=== PATIENT | male | born 1985 | race American Indian/Alaskan Native ===

== ENCOUNTER 2021-06-20 22:58 | Emergency (ER) | payer OTHER ==
[2021-06-21] MEDS ORDERED: dexAMETHasone 20 MG/5 ML VIAL IM ONE (02:50)
[2021-06-21] MEDS ORDERED: KETOROLAC 30 MG/1 ML INJ IM ONE (02:50)
--- NOTE | 2021-06-21 03:54 | XRay Report ---
CHEST 2 VIEWS INDICATION / CLINICAL INFORMATION: COUGH. COMPARISON: None available. FINDINGS: SUPPORT DEVICES: None. HEART / MEDIASTINUM: No significant abnormality. LUNGS / PLEURA: No significant pulmonary or pleural abnormality. No pneumothorax. ADDITIONAL FINDINGS: No significant additional findings. IMPRESSION: 1. No acute findings. Signer Name: Pedro Benavides DO Signed: 06/21/2021 3:50 AM Workstation Name: [id number]
[2021-06-21 05:41] LABS: Bilirubin,Urine NEG (Negative); Blood,Urine NEG (Negative); Color,Urine Yellow (Yellow); Protein,Urine <15 mg/dL mg/dL (Negative); Urobilinogen,Urine < 2.0 mg/dL (<2.0); WBC,Urine < 1.0 /HPF (0.0-6.0)
[2021-06-21 06:56] VITALS: BP 165/93
--- NOTE | 2021-06-21 07:00 | Emergency Department Report ---
ED General Adult HPI - General Chief complaint: Pain General Stated complaint: BODYACHE/WEAKNESS Source: patient Mode of arrival: Ambulatory Limitations: No Limitations - History of Present Illness Initial comments: Patient is a 35-year-old -[place] male with a history of asthma and chronic right hip pain who presents to the ED with complaint of acute onset persistent low back pain that radiates to the right hip for the last 1 week, worse in the last 3 days. Patient states that the pain has been constant and persistent. Patient states that his job entails heavy lifting and he suspect that the pain may have been aggravated by lifting at work. Patient denies numbness and tingling or weakness of lower extremities bilaterally, dysuria, urinary frequency and urgency, chest pain or shortness of breath, fever and chills, fever and chills. In the ED, patient is alert and oriented x3 and is not in any distress. Patient was treated for pain in the ED. Urinalysis is unremarkable. On reevaluation, patient's pain is well controlled medication. Patient will discharge home on medications for pain and advised to follow-up with his primary care physician in 7 to 10 days for reevaluation or return to the ED immediately if symptoms get worse. MD Complaint: Low back pain that radiates to right hip -: Gradual, week(s) (2) Location: back (Low back), pelvis (Right hip pain), lower extremity (Right hip pain) Radiation: back (Low back pain) Severity scale (0 -10): 7 Quality: aching, sharp Consistency: constant Improves with: rest Worsens with: movement Associated Symptoms: denies other symptoms. denies: confusion, chest pain, cough, diaphoresis, fever/chills, headaches, loss of appetite, malaise, nausea/vomiting, rash, shortness of breath, syncope, weakness Treatments Prior to Arrival: none - Related Data Previous Rx's Medication Instructions Recorded Last Taken Type Ibuprofen [Motrin] 800 mg PO Q8HR PRN #30 tablet 06/21/21 Unknown Rx methOCARBAMOL [Robaxin TAB] 750 mg PO Q12H PRN #30 tab 06/21/21 Unknown Rx predniSONE [Deltasone] 40 mg PO QDAY #10 tab 06/21/21 Unknown Rx Allergies Allergy/AdvReac Type Severity Reaction Status Date / Time No Known Allergies Allergy Unverified 06/21/21 02:14 ED Review of Systems ROS: Stated complaint: BODYACHE/WEAKNESS Other details as noted in HPI Constitutional: denies: chills, fever Eyes: denies: eye pain, eye discharge, vision change ENT: denies: ear pain, throat pain Respiratory: denies: cough, shortness of breath, wheezing Cardiovascular: denies: chest pain, palpitations Endocrine: no symptoms reported Gastrointestinal: denies: abdominal pain, nausea, vomiting, diarrhea Genitourinary: denies: urgency, dysuria Musculoskeletal: back pain (Low back pain), arthralgia (Right hip pain and low back pain). denies: joint swelling Skin: denies: rash, lesions Neurological: denies: headache, weakness, paresthesias Psychiatric: denies: anxiety, depression Hematological/Lymphatic: denies: easy bleeding, easy bruising ED Past Medical Hx - Past Medical History Previous Medical History?: Yes Hx Asthma: Yes - Surgical History Past Surgical History?: No - Social History Smoking Status: Never Smoker Substance Use Type: None - Medications Home Medications: Home Medications Medication Instructions Recorded Confirmed Last Taken Type Ibuprofen [Motrin] 800 mg PO Q8HR PRN #30 tablet 06/21/21 Unknown Rx methOCARBAMOL [Robaxin TAB] 750 mg PO Q12H PRN #30 tab 06/21/21 Unknown Rx predniSONE [Deltasone] 40 mg PO QDAY #10 tab 06/21/21 Unknown Rx ED Physical Exam - General Limitations: No Limitations General appearance: alert, in no apparent distress - Head Head exam: Present: atraumatic, normocephalic, normal inspection - Eye Eye exam: Present: normal appearance, PERRL, EOMI Pupils: Present: normal accommodation - ENT ENT exam: Present: normal exam, normal orophraynx, mucous membranes moist, TM's normal bilaterally, normal external ear exam - Neck Neck exam: Present: normal inspection, full ROM. Absent: tenderness - Respiratory Respiratory exam: Present: normal lung sounds bilaterally. Absent: respiratory distress, wheezes, rales, rhonchi, chest wall tenderness, accessory muscle use, decreased breath sounds, prolonged expiratory - Cardiovascular Cardiovascular Exam: Present: regular rate, normal rhythm, normal heart sounds. Absent: systolic murmur, diastolic murmur, rubs, gallop - GI/Abdominal GI/Abdominal exam: Present: soft, normal bowel sounds. Absent: tenderness, guarding, rebound, hyperactive bowel sounds, hypoactive bowel sounds, organomegaly, mass - Extremities Exam Extremities exam: Present: normal inspection, full ROM, tenderness (Palpable right hip tenderness), normal capillary refill - Back Exam Back exam: Present: normal inspection, full ROM, tenderness (Palpable lumbosacral paraspinal musculoskeletal tenderness), muscle spasm, paraspinal tenderness. Absent: CVA tenderness (R), CVA tenderness (L), vertebral tendern ess - Neurological Exam Neurological exam: Present: alert, oriented X3, CN II-XII intact, normal gait, reflexes normal - Psychiatric Psychiatric exam: Present: normal affect, normal mood - Skin Skin exam: Present: warm, dry, intact, normal color. Absent: rash ED Medical Decision Making - Medical Decision Making This is a 35-year-old -[place] male with a history of asthma and chronic right hip pain who presents to the ED with complaint of acute onset persistent low back pain that radiates to the right hip for the last 1 week, worse in the last 3 days. Patient states that the pain has been constant and persistent. Patient states that his job entails heavy lifting and he suspect that the pain may have been aggravated by lifting at work. - Differential Diagnosis MUSCLE STRAIN; CHRONIC HIP PAIN; MUSCLE SPASM Critical care attestation.: If time is entered above; I have spent that time in minutes in the direct care of this critically ill patient, excluding procedure time. ED Disposition Clinical Impression: Chronic right hip pain, Spasm of muscle of lower back Disposition: 01 HOME / SELF CARE / HOMELESS Is pt being admited?: No Does the pt Need Aspirin: No Condition: Stable Instructions: Muscle Cramps and Spasms, [id number], Hip Pain, Musculoskeletal Pain, Chronic Pain, Adult Additional Instructions: Take medication with food, drink plenty of fluids and follow-up with your primary care physician in 7 to 10 days for reevaluation. Return to the ED immediately if symptoms get worse Prescriptions: predniSONE [Deltasone] 40 mg PO QDAY #10 tab Ibuprofen [Motrin] 800 mg PO Q8HR PRN #30 tablet PRN Reason: Pain , Severe (7-10) methOCARBAMOL [Robaxin TAB] 750 mg PO Q12H PRN #30 tab PRN Reason: Muscle Spasm Referrals: PEDRO GUAMAN MD [Primary Care Provider] - 3-5 Days Time of Disposition: 07:06 Print Language: HUNGARIAN
== END 2021-06-21 07:10 | disposition home or self-care (01) ==
LOC: ED 22:58
DX: M25.551 Pain in right hip (principal); M62.830 Muscle spasm of back; J45.909 Unspecified asthma, uncomplicated
CPT/HCPCS: 71046; 81001; 96372; 99283; J1100; J1885